=== PATIENT | female | born 1980 | race Caucasian/White ===

== ENCOUNTER 2023-11-23 15:41 | Emergency (ER) | payer BC, SELFPAY ==
--- NOTE | ~2023-11-23 | XR_ITS ---
EXAMINATION: XR FINGER, LEFT CLINICAL INFORMATION: Second finger laceration COMPARISON: None available. TECHNIQUE: Three views of the left index finger. FINDINGS: Bandage identified over the second digit. The bones and soft tissues are normal. No fracture. Alignment is anatomic. Joint spaces are maintained. XR/XR finger LT min 2V IMPRESSION: No acute bony pathology.
[2023-11-23 15:49] VITALS: BP 115/85; PULSE 91; RESP 20; TEMP 36.6; O2SAT 97; BMI 35.1
[2023-11-23] MEDS: Acetaminophen 325 MG TABLET 650 MG PO (15:55)
--- NOTE | 2023-11-23 16:05 | ED_ITS ---
HPI - General Adult General Chief complaint: Skin/Abscess/Foreign Body Stated complaint: cut finger, deep Time Seen by Provider: 11/23/23 16:05 Source: patient Mode of arrival: ambulatory Limitations: no limitations History of Present Illness HPI narrative: Patient is a 43-year-old [id number] female presenting to the emergency department with complaint of laceration to left index finger. States that she was attempting to open a package with a pair of scissors when they slipped, causing a laceration. She denies any numbness or tingling. Reports full range of motion to finger. Unsure last Tdap. States incident happened immediately prior to arrival. MD complaint: Left finger laceration Onset (ago): minute(s) Location: left and upper extremity Severity: mild Quality: aching Associated symptoms: denies other symptoms Treatments prior to arrival: other (Bandage) Related Data Allergies Allergy/AdvReac Type Severity Reaction Status Date / Time No Known Allergies Allergy Verified 11/23/23 15:52 Review of Systems Review of Systems: As per HPI. Yes all other systems are reviewed and are negative Constitutional: Constitutional: Reports as per HPI [facility] Social History Social History Advance Directives: No Advance Directives Information Provided: Yes Physical Exam ED Vital Signs: Vital Signs - 24 hr 11/23/23 15:49 Temperature 97.8 F Pulse Rate 91 Respiratory Rate 20 Blood Pressure 115/85 Pulse Oximetry 97 Oxygen Delivery Method Room Air BMI result Body Mass Index 35.1 Vital signs have been reviewed and appear to be correct. Blood pressure normal. Heart rate normal. Respiratory rate normal. Temperature normal. Oxygen saturation normal. Const General: cooperative, healthy appearing and no acute distress Orientation/consciousness: oriented to person, oriented to place, oriented to time and patient oriented x3 Limitations: no limitations HENNJ Head: Yes normocephalic and Yes atraumatic Ears: external ears normal General nose exam: Normal external nose present Face and sinus: Yes face symmetric Mouth: oropharynx normal and moist mucous membranes Throat: Yes uvula midline Eyes Pupils: Equal, round and reactive pupils present Neck Neck: Yes normal visual inspection and Yes supple Resp Effort & Inspection: normal respiratory effort and able to speak in complete sentences Auscultation: clear to auscultation bilaterally Cardio Rate: regular rate Rhythm: regular rhythm Heart sounds: S1 normal heart sound present and S2 normal heart sound present GI Palpation (GI): Soft to palpation and nontender Auscultation: normoactive bowel sounds General: Yes no CVA tenderness Back/Spine/Pelvis Back: no CVA tenderness Skin General skin exam: elasticity normal and turgor normal Neuro General: oriented to person, oriented to place, oriented to time, patient oriented x3, moves all extremities, no focal motor deficits and CN's II-XI intact bilaterally Cranial nerves: Yes Equal, round and reactive pupils present Cognition (Neuro): normal cognition Extrem General: Yes full ROM, Yes no pedal edema and Yes no calf tenderness Left upper extremity: hand Details: normal capillary refill, neuromotor exam normal, neurosensory exam normal, normal ROM of fingers and laceration 2nd digit dorsal aspect mid Details: linear (1cm, between IP joints, dorsal) Psych Mental Status: mental status grossly normal Affect: normal affect Thought process: Normal thought process present Medications Administered Discontinued Medications Generic Name Dose Route Start Last Admin Trade Name Freq PRN Reason Stop Dose Admin Acetaminophen 650 mg 11/23/23 15:53 11/23/23 15:55 Acetaminophen 325 Mg Tablet PO 11/23/23 15:54 650 mg ONCE ONE Administration Bacitracin 1 appl 11/23/23 16:08 11/23/23 16:15 Bacitracin Oint 0.9 Gm Packet TOPICAL 11/23/23 16:09 1 appl ONCE ONE Administration Protocol Diphtheria/Tetanus/Acell Pertussis 0.5 ml 11/23/23 16:05 11/23/23 16:12 Diphth,Pertus(Acell),Tet Adult 0.5 Ml Syringe IM 11/23/23 16:06 0.5 ml .ONCE ONE Administration Lidocaine HCl 5 ml 11/23/23 16:08 11/23/23 16:17 Lidocaine Hcl 1 % Mpf 5 Ml Vial INFILTRATI 11/23/23 16:09 5 ml ONCE ONE Administration Procedures Laceration Laceration 1: Site: hand Side (If applicable): left Size (cm): 1 Description: linear Depth: simple, single layer Local Anesthetic: lidocaine 1% Amount of anesthesia used (mL): 1 Pre-repair: wound explored, irrigated extensively and deep structures intact Skin layer closed with: other (prolene) Size (cm): 5-0 Number of sutures: 3 Technique: simple, interrupted Medical Decision Making Medical Decision Making MDM Narrative: Patient is a 43-year-old [id number]-[id number] female presenting to the emergency department with complaint of laceration to left index finger. On exam patient is awake, A+Ox3, VS WNL, afebrile, normal neurological exam without focal deficits, physical exam findings as above. Given reported symptoms and physical exam findings, initial differential includes laceration. X-ray notable for no acute fracture. My interpretation is in agreement with the radiologist's interpretation. Laceration repaired as per procedure note, patient tolerated well. Dressing applied, patient instructed to keep this in place and dry for 24 hours. Advised patient to change dressing and assess wound daily, return for signs of infection. Tdap updated at today's visit. Return precautions and suture removal discussed at bedside. Patient verbalized understanding of and agreement with plan. Differential Diagnosis Differential Diagnoses: The differential diagnosis associated with the presentation includes As per MDM. Independent Interpretation I performed an independent interpretation of an: Plain X-Ray Interpretation: No acute fracture left 2nd finger Radiology Impression Discussion of test interpretation with radiology: I have reviewed the radiologist's reading. External Record Review External record reviewed: Inpatient record, Office record and Outpatient record Discharge Plan Discharge Clinical Impression: Laceration of finger of left hand Patient Disposition: Home, Self-Care Instructions: Finger Laceration (ED), Care For Your Stitches (DC), Stitches Removal (ED) Additional Instructions: You have been evaluated in the emergency department today for a laceration to your finger. Your laceration was repaired in the emergency department with 3 sutures. Please keep the area surrounding the laceration clean and dry and keep dressing in place for the next 24 hours. After that please change the dressing and assess the wound daily. Avoid submerging your hand in standing water such as washing dishes, swimming, hot tubs, etc.. It is especially important to avoid any outdoor water such as lakes, [place], [place], etc.. Keep the area out of direct sunlight for the next 6 months to help prevent scarring. You should have the sutures removed in 7-10 days. Your Tdap (tetanus vaccine) was updated at today's visit. If you develop fever, redness, swelling at the site of your laceration, or thick yellow drainage please come back to the ER for a wound check.
[2023-11-23] MEDS: Diphth,Pertus(ACell),Tet Adult 0.5 ML SYRINGE IM (16:12)
[2023-11-23] MEDS: Bacitracin Oint 0.9 GM PACKET 1 APPL TOPICAL (16:15)
[2023-11-23] MEDS: Lidocaine HCl 1 % MPF 5 ML VIAL INFILTRATI (16:17)
== END 2023-11-23 17:53 | disposition home or self-care (01) ==
PROVIDERS: Emergency Provider Emergency Medicine; PCP Family Medicine
DX: S61.211A Laceration without foreign body of left index finger without damage to nail, initial encounter (principal); W27.2XXA Contact with scissors, initial encounter; Y93.9 Activity, unspecified; Y92.9 Unspecified place or not applicable; Y99.9 Unspecified external cause status
CPT/HCPCS: 12001; 73140; 90471; 90715; 99282; 99284